=== PATIENT | female | born 1995 | race Caucasian/White ===

== ENCOUNTER 2017-03-17 22:45 | Emergency (ER) | payer OTHER ==
[2017-03-17 22:52] VITALS: TEMP 98.4
--- NOTE | 2017-03-17 23:17 | EDPHY ---
General Narrative: CHIEF COMPLAINT: Fall, right ankle injury HISTORY OF PRESENT ILLNESS: Patient complains of fall and right ankle pain. She was walking down a set of stairs when she slipped, falling 2 feet. She landed awkwardly on her right ankle. She felt a sudden onset of pain on the lateral ankle. There is also pain in the medial ankle. It is worse on the outside. No pain in the knee, mid foot or heel. No head strike or loss of conscious. No numbness or tingling. No weakness. No laceration. ESTABLISHED ORTHOPEDIST: None REVIEW OF SYSTEMS: Ten systems reviewed and are negative unless otherwise noted in the HPI PAST MEDICAL HISTORY: ADD PAST SURGICAL HISTORY: No surgeries SOCIAL HISTORY: Nonsmoker. Occasional alcohol. [employer] student. Originally from [place] FAMILY HISTORY: Noncontributory EXAMINATION General Appearance: Alert, no distress Cardiovascular: Symmetric DP and PT pulses 2+. Neurological: A&O, light sensation to the top of the foot symmetric. Proprioception of the right great toe intact. No footdrop. Skin: Warm and dry, no rash. No laceration or ecchymosis. Extremities: Tenderness of the right lateral malleolus and medial malleolus. No crepitus or deformity. There is moderate swelling. No tenderness of the right midfoot. No tenderness of the right calcaneus with firm palpation. Range of motion is intact but painful. Psychiatric: Mood and affect normal DIFFERENTIAL DIAGNOSES: Including but not limited to fracture, sprain, strain, contusion, fracture dislocation MDM: 11:15 p.m. Acute ankle injury with minimally displaced fibular fracture by my interpretation on the x-ray. No other finding. She is neurovascular intact distally. Interpretation pending. 11:45 p.m. Radiologist as read the film the same without any other fractures. She has a Chamber[place] boot in place. Crutches have been provided with instructions. She is ambulating with crutches successfully. We discussed ice and elevation. We discussed anti-inflammatories. We discussed short course of pain medication. We discussed ortho follow-up for outpatient definitive care. We discussed ED precautions. She is comfortable this plan and discharged home stable condition. SUPERVISION: Patient was independently examined, but I discussed the case with my secondary supervising physician Dr. Kaur ED Precautions: Worsening pain. Erythema, edema, cyanosis, pallor, paresthesia or anesthesia. - History Smoking Status: Never smoked - Objective Vital Signs: Initial Vital Signs Temperature (C) 98.4 F 03/17/17 22:49 Heart Rate 91 03/17/17 22:49 Respiratory Rate 20 03/17/17 22:49 Blood Pressure 123/80 H 03/17/17 22:49 O2 Sat (%) 99 03/17/17 22:49 O2 Delivery Mode Room Air Allergies/Adverse Reactions: No Known Allergies Allergy (Unverified 03/17/17 22:48) Home Medications: Medication Instructions Recorded Adderall 10 MG (*) 03/17/17 Hydrocodone/APAP 5/325 [[place] 1 - 2 tab PO Q4H PRN #7 tab 03/17/17 5/325 (*)] Medications Given: Discontinued Medications Hydrocodone Bitart/Acetaminophen ([place] 5/325mg Prepack#6) 1 btl TAKEHOME EDNOW ONE Stop: 03/17/17 23:39 Last Admin: 03/17/17 23:51 Dose: 1 btl Departure - Departure Disposition: Home, Routine, Self-Care Clinical Impression: Fracture of fibula, distal, closed Qualifiers: Encounter type: initial encounter Fracture morphology: unspecified fracture morphology Laterality: right Qualified Code(s): S82.831A - Other fracture of upper and lower end of right fibula, initial encounter for closed fracture Fall Qualifiers: Encounter type: initial encounter Qualified Code(s): W19.XXXA - Unspecified fall, initial encounter Moderate ankle sprain Qualifiers: Encounter type: initial encounter Laterality: right Qualified Code(s): S93.401A - Sprain of unspecified ligament of right ankle, initial encounter Condition: Good Instructions: Hydrocodone/Acetaminophen (By mouth), Ankle Fracture (ED), Ankle Sprain (ED) Additional Instructions: 1. Ice and elevation often 2. Aleve 1-2 pills twice daily for the next 5-7 days and stop 3. Pain medication as provided as needed 4. Contact the on-call orthopedist as provided 5. ED precautions as discussed Referrals: MAGGIE GUZMAN [Other] - As per Instructions Stuart Merlos MD [Medical Doctor] - As per Instructions Prescriptions: Hydrocodone/APAP 5/325 [[place] 5/325 (*)] 1 - 2 tab PO Q4H PRN #7 tab PRN Reason: Pain, Moderate
[2017-03-17] MEDS ORDERED: HYDROCOD/APAP 5/325 PREPACK#6 BTL TAKEHOME ONE (23:38)
[2017-03-17 23:55] VITALS: BP 118/76; PULSE 73; RESP 16; O2SAT 96
== END 2017-03-17 23:53 | disposition home or self-care (01) ==
DX: S82.831A Other fracture of upper and lower end of right fibula, initial encounter for closed fracture (principal); S93.401A Sprain of unspecified ligament of right ankle, initial encounter; W10.9XXA Fall (on) (from) unspecified stairs and steps, initial encounter; Y93.01 Activity, walking, marching and hiking
CPT/HCPCS: L4386